=== PATIENT | male | born 1950 | race Caucasian/White ===

== ENCOUNTER 2016-01-29 14:22 | Outpatient (RCR) | payer OTHER | END 2016-03-04 | LOC: WSOH | DX: M79.602 Pain in left arm (principal) ==

== ENCOUNTER 2016-07-15 07:39 | Outpatient (RCR) | payer OTHER | END 2016-07-20 09:14 | disposition home or self-care (01) | LOC: WSPT 07:39 | DX: Z47.89 Encounter for other orthopedic aftercare (principal); M75.102 Unspecified rotator cuff tear or rupture of left shoulder, not specified as traumatic ==